=== PATIENT | female | born 1965 | race Hispanic/Latino ===

== ENCOUNTER 2023-04-13 11:02 | Emergency (ER) | payer OTHER ==
[~2023-04-13] VITALS: Ht 170.2 cm; Wt 54.9 kg
[2023-04-13 11:36] VITALS: BP 115/74; PULSE 74; RESP 16; O2SAT 100
[2023-04-13 12:08] LABS: BASOPHILS # (AUTO) 0.01 K/uL (0.00-0.20); BASOPHILS % (AUTO) 0.2 % (0.0-5.0); EOSINOPHILS # (AUTO) 0.11 K/uL (0.00-0.70); EOSINOPHILS % (AUTO) 1.8 % (0.0-8.0); HEMATOCRIT 42.9 % (36-48); IMMATURE GRANULOCYTE ABSOLUTE 0.01 K/uL (0-1); LYMPHOCYTES # (AUTO) 1.6 K/uL (1.0-4.8); LYMPHOCYTES % (AUTO) 26.5 % (21.0-51.0); MEAN CORPUSCULAR HEMOGLOBIN 29.8 pg (27.0-33.0); MEAN CORPUSCULAR HGB CONC 32.9 g/dL (32.0-36.0); MEAN CORPUSCULAR VOLUME 90.7 fL (79-99); MONOCYTES # (AUTO) 0.4 K/uL (0.1-1.0); MONOCYTES % (AUTO) 6.4 % (3.0-13.0); NEUTROPHILS % (AUTO) 64.9 % (40.0-77.0); PLATELET COUNT (AUTO) 229 K/uL (130-400); RED BLOOD CELL COUNT(AUTO) 4.73 MIL/uL (4.00-5.50); RED CELL DISTRIBUTION WIDTH 13.3 % (11.0-15.5); WHITE BLOOD COUNT (AUTO) 6.1 K/uL (4.8-10.8)
[2023-04-13 12:12] LABS: APPEARANCE,URINE CLEAR (CLEAR); BILIRUBIN,URINE NEGATIVE (NEGATIVE); COLOR,URINE YELLOW (YELLOW); GLUCOSE, URINE (UA) NEGATIVE (NEGATIVE); KETONES,URINE 10 mg/dL (NEGATIVE); LEUKOCYTE ESTERASE ,URINE NEGATIVE Leu/uL (NEGATIVE); NITRATE,URINE NEGATIVE (NEGATIVE); OCCULT BLOOD,URINE NEGATIVE (NEGATIVE); PROTEIN,URINE NEGATIVE (NEGATIVE); UROBILINOGEN,URINE 0.2 mg/dL (0.2-1.0)
[2023-04-13 12:19] LABS: ADD UA MICROSCOPIC YES
[2023-04-13 12:23] LABS: MUCUS,URINE RARE LPF (None Seen); RBC,URINE 0-1 /HPF (0-1); SQUAMOUS EPITHELIAL CELL,UR RARE /HPF (0-2); WBC,URINE 0-1 /HPF (0-1)
[2023-04-13 12:24] LABS: CREATININE 0.7 mg/dL (0.5-1.5); POTASSIUM 3.8 mmol/L (3.5-5.1)
[2023-04-13 12:29] LABS: ALBUMIN 4.3 g/dL (3.5-5.0); BILIRUBIN,TOTAL 0.6 mg/dL (0.2-1.0)
[2023-04-13] MEDS ORDERED: LIDOCAINE HCL 2% VISCOUS 15 ML UDCUP PO ONE (13:00)
[2023-04-13] MEDS ORDERED: MAG/ALUM/SIMETH 30 ML UDCUP PO ONE (13:00)
[2023-04-13] MEDS ORDERED: DICYCLOMINE HCL 10 MG/5 ML ML PO ONE (13:00)
[2023-04-13] MEDS ORDERED: FAMOTIDINE 20MG VIAL IV ONE (13:00)
[2023-04-13] MEDS ORDERED: KETOROLAC 30MG VIAL (30MG/ML) IVP ONE (14:30)
[2023-04-13] MEDS ORDERED: PANT40TA54 PO (14:38)
== END 2023-04-13 15:15 | disposition home or self-care (01) ==
LOC: EDH 11:02
DX: K29.00 Acute gastritis without bleeding (principal); E03.9 Hypothyroidism, unspecified; E78.00 Pure hypercholesterolemia, unspecified; M19.90 Unspecified osteoarthritis, unspecified site; Z90.710 Acquired absence of both cervix and uterus
CPT/HCPCS: 99285; 96374; 71045; 96375; 84484; 80053; 83690; 85025; 81001; 36415; 93005; J3490; J1885

== ENCOUNTER → 2023-05-04 | Outpatient (CLI) | payer OTHER ==
[~2023-05-04] MED LIST: PANT40TA54 PO
[2023-05-04 16:09] LABS: BASOPHILS # (AUTO) 0.03 K/uL (0.00-0.20); BASOPHILS % (AUTO) 0.6 % (0.0-5.0); EOSINOPHILS % (AUTO) 1.9 % (0.0-8.0); HEMATOCRIT 41.9 % (36-48); IMMATURE GRANULOCYTE ABSOLUTE 0.01 K/uL (0-1); LYMPHOCYTES # (AUTO) 1.7 K/uL (1.0-4.8); LYMPHOCYTES % (AUTO) 32.4 % (21.0-51.0); MEAN CORPUSCULAR HEMOGLOBIN 29.3 pg (27.0-33.0); MEAN CORPUSCULAR HGB CONC 31.5 g/dL (32.0-36.0); MEAN CORPUSCULAR VOLUME 92.9 fL (79-99); MONOCYTES # (AUTO) 0.5 K/uL (0.1-1.0); MONOCYTES % (AUTO) 9.5 % (3.0-13.0); NEUTROPHILS % (AUTO) 55.4 % (40.0-77.0); PLATELET COUNT (AUTO) 194 K/uL (130-400); RED BLOOD CELL COUNT(AUTO) 4.51 MIL/uL (4.00-5.50); RED CELL DISTRIBUTION WIDTH 13.2 % (11.0-15.5); WHITE BLOOD COUNT (AUTO) 5.4 K/uL (4.8-10.8)
[2023-05-04 16:44] LABS: BILIRUBIN,TOTAL 0.4 mg/dL (0.2-1.0); CREATININE 0.7 mg/dL (0.5-1.5); TOTAL PROTEIN, SERUM 7.2 g/dL (6.0-8.3)
== END | disposition home or self-care (01) ==
LOC: LAB 15:43
PROVIDERS: ATTEND Internal Medicine Gastroenterology
DX: C16.9 Malignant neoplasm of stomach, unspecified (principal)
CPT/HCPCS: 36415; 80053; 85025; 86304

== ENCOUNTER → 2023-05-06 | Outpatient (CLI) | payer OTHER ==
[~2023-05-06] MED LIST changes: +IOHEXOL-350 75 ML VIAL IV ONE
== END | disposition home or self-care (01) ==
LOC: RAH 08:56
PROVIDERS: ATTEND Internal Medicine Gastroenterology
DX: C16.9 Malignant neoplasm of stomach, unspecified (principal)
CPT/HCPCS: 71270; 74178; Q9967

== ENCOUNTER → 2023-07-08 | Outpatient (CLI) | payer OTHER ==
[~2023-07-08] MED LIST changes: -IOHEXOL-350 75 ML VIAL IV ONE
== END | disposition home or self-care (01) ==
LOC: CANPRECLI → RAH 15:33
PROVIDERS: ATTEND Family Medicine
DX: E04.1 Nontoxic single thyroid nodule (principal)
CPT/HCPCS: 76536

== ENCOUNTER → 2024-02-29 | Outpatient (CLI) | payer OTHER ==
[~2024-02-29] MED LIST changes: +IOHEXOL-350 75 ML VIAL IV ONE
--- NOTE | 2024-02-29 15:57 | HMCIMG ---
CT CHEST/ABD/PELV W/WO CONTRAS HISTORY: 05/06/2023 COMPARISON: None TECHNIQUE: Multiple sequential axial images of the chest were obtained from the thoracic inlet through upper abdomen. Patient was given 75 cc of Omnipaque through intravenous route. FINDINGS: COPD changes are seen. A small hiatal hernia is seen. There is no evidence of pulmonary nodule or parenchymal disease. No pleural effusion or pericardial effusion is seen. There is no evidence of pneumothorax. There are normal size mediastinal and hilar lymph nodes. The heart is not enlarged. Degenerative changes of the thoracolumbar spine are present. There is no evidence of adrenal nodule. IMPRESSION: 1. No evidence of pulmonary nodule or effusion is seen. COPD. CT CHEST/ABD/PELV W/WO CONTRAS HISTORY: Gastric adenocarcinoma COMPARISON: None TECHNIQUE: Multiple sequential axial images of the abdomen and pelvis were obtained from the dome of the diaphragm through symphysis pubis. Patient was given 75 cc of Omnipaque through intravenous route. Oral contrast was not given. FINDINGS: Postcholecystectomy changes are seen. The study is limited due to minimal mesenteric fat in this patient. Liver measures 16 cm. Minimal small bowel dilatation is seen. The liver, spleen, adrenal glands and pancreas are unremarkable. There is no evidence of hydronephrosis bilaterally. No evidence of renal stone is seen. Fecal material is seen in the colon. There are normal size retroperitoneal and mesenteric lymph nodes. No ascites is seen. No definite CT evidence of acute appendicitis is seen. Clinical correlation is recommended. Pelvic sidewalls are symmetric bilaterally. Bladder is well distended without wall thickening. IMPRESSION: 1. Limited study. Fecal material is seen in the colon. CT was performed with one or more following dose reduction techniques: automated exposure control, adjustment of the mA and kv according to patient's size, or use of a iterative reconstruction technique.
== END | disposition home or self-care (01) ==
LOC: RAH 13:20
PROVIDERS: ATTEND Family Medicine
DX: C16.9 Malignant neoplasm of stomach, unspecified (principal); J44.9 Chronic obstructive pulmonary disease, unspecified; K44.9 Diaphragmatic hernia without obstruction or gangrene; M47.815 Spondylosis without myelopathy or radiculopathy, thoracolumbar region
CPT/HCPCS: 71270; 74178; Q9967

== ENCOUNTER → 2024-03-18 | Outpatient (CLI) | payer OTHER ==
[~2024-03-18] MED LIST changes: -IOHEXOL-350 75 ML VIAL IV ONE
== END | disposition home or self-care (01) ==
LOC: SHCH 08:18
PROVIDERS: ATTEND Student in an Organized Health Care Education/Training Program
DX: Z51.11 Encounter for antineoplastic chemotherapy (principal); R53.83 Other fatigue
CPT/HCPCS: 93306

== ENCOUNTER → 2024-11-08 | Outpatient (CLI) | payer OTHER ==
--- NOTE | 2024-11-09 05:02 | HMCIMG ---
EXAMINATION: ULTRASOUND OF THE THYROID. CLINICAL HISTORY: Non-toxic single thyroid nodule. COMPARISON: Ultrasound of the thyroid dated 07/08/2023. TECHNIQUE: Transverse and longitudinal images were obtained through both lobes and the isthmus of the thyroid. FINDINGS: The thyroid gland is normal in caliber with homogenous tissue echotexture. The right thyroid lobe measures 3.9 x 0.7 x 1.1 cm and the left thyroid lobe measures 2.5 x 0.9 x 1.0 cm in the craniocaudal, AP, and transverse dimensions respectively. The isthmus measures 0.16 cm in AP dimension. Right lobe: There is a hyperechoic solid nodule that measures 0.8 x 0.5 x 0.6 cm at the upper pole (TR3). Left lobe: There are no focal lesions. No significantly enlarged lymph nodes. IMPRESSION: Nodule in the right lobe of the thyroid. No significant interval changes. TI-RADS follow up recommendations: TR1: no FNA required TR2: no FNA required TR3: more than or equal to 1.5 cm follow up, more than or equal to 2.5 cm FNA follow up: 1, 3 and 5 years TR4: more than or equal to 1.0 cm follow up, more than or equal to 1.5 cm FNA follow up: 1, 2, 3 and 5 years TR5: more than or equal to 0.5 cm follow up, more than or equal to 1.0 cm FNA annual follow up for up to 5 years /[place]
== END | disposition home or self-care (01) ==
LOC: RAH 14:37
PROVIDERS: ATTEND Family Medicine
DX: E04.1 Nontoxic single thyroid nodule (principal)
CPT/HCPCS: 76536

== ENCOUNTER 2024-11-20 08:56 | Emergency (ER) | payer OTHER ==
[~2024-11-20] VITALS: Ht 170.2 cm; Wt 44.0 kg
[2024-11-20 10:01] LABS: IMMATURE GRANULOCYTE ABSOLUTE 0.01 K/uL (0-1); NUCLEATED RED BLOOD CELLS 0.0 % (0.0-0.19); PLATELET COUNT (AUTO) 219 K/uL (130-400); RED BLOOD CELL COUNT(AUTO) 4.02 MIL/uL (4.00-5.50); RED CELL DISTRIBUTION WIDTH 14.4 % (11.0-15.5); WHITE BLOOD COUNT (AUTO) 5.0 K/uL (4.8-10.8)
--- NOTE | 2024-11-20 10:02 | EKG ---
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
[2024-11-20 10:13] LABS: CREATININE 0.6 mg/dL (0.5-1.0); GLOMERULAR FILTR. RATE CALC 105.0 mL/min (>90); GLUCOSE,RANDOM 83.0 mg/dL (70-105); SODIUM SERUM 141.0 mmol/L (136-145); UREA NITROGEN, BLOOD 14.0 mg/dL (7-18)
[2024-11-20 10:17] LABS: ASPARTATE AMINOTRANSFERASE 38.0 U/L (10-37); TOTAL PROTEIN, SERUM 6.6 g/dL (6.0-8.3)
[2024-11-20] MEDS: 0.9%NACL 1000ML 1,000 ML IV ONE (10:25)
[2024-11-20 10:35] LABS: APPEARANCE,URINE CLEAR (CLEAR); GLUCOSE, URINE (UA) NEGATIVE (NEGATIVE); LEUKOCYTE ESTERASE ,URINE 25 Leu/uL (NEGATIVE); NITRATE,URINE NEGATIVE (NEGATIVE); OCCULT BLOOD,URINE +- (TRACE) (NEGATIVE)
[2024-11-20 10:36] LABS: ADD UA MICROSCOPIC YES
[2024-11-20 10:38] LABS: SQUAMOUS EPITHELIAL CELL,UR RARE /HPF (0-2)
--- NOTE | 2024-11-20 11:13 | HMCIMG ---
EXAM: CT Abdomen and Pelvis Without IV contrast CLINICAL HISTORY: right sided abdominal pain TECHNIQUE: Axial computed tomography images of the abdomen and pelvis without intravenous contrast. CONTRAST: No IV contrast. COMPARISON: None provided. FINDINGS: LUNG BASES: The lung bases appear clear. No pleural effusions are seen. LIVER: Unremarkable. GALLBLADDER AND BILE DUCTS: The gallbladder appears within normal limits. No radioopaque gallstones are seen. No biliary ductal dilatation is evident. PANCREAS: Unremarkable. SPLEEN: Unremarkable. ADRENAL GLANDS: Unremarkable. KIDNEYS, URETERS, AND BLADDER: 3 mm stone in the right distal ureter with moderate right hydroureteronephrosis. Bilateral subcentimeter obstructing renal collecting system stones. No left ureteral stones. No left hydronephrosis. STOMACH AND BOWEL: No bowel obstruction or inflammation. Postsurgical changes from gastric bypass. Small hiatal hernia. APPENDIX: Normal appendix. PERITONEUM: No free fluid. No free air. LYMPH NODES: No lymphadenopathy is evident. REPRODUCTIVE: Unremarkable as visualized. VASCULATURE: No evidence of abdominal aortic aneurysm. BONES: No aggressive appearing osseous lesion. No acute osseous pathology evident. IMPRESSION: 1. 3 mm stone in the right distal ureter with moderate right hydroureteronephrosis. 2. Bilateral subcentimeter obstructing renal collecting system stones. No left ureteral stones. No left hydronephrosis. 3. No bowel obstruction or inflammation. Normal appendix. 4. Postsurgical changes from gastric bypass. Small hiatal hernia. /[place]
--- NOTE | 2024-11-20 13:22 | NUR ---
REPORT GIVEN TO ANN
[2024-11-20] MEDS ORDERED: ONDA-243 PO (15:01)
[2024-11-20] MEDS ORDERED: NAPR-1196 PO (15:01)
[2024-11-20] MEDS ORDERED: TAMS-55 PO (15:01)
--- NOTE | 2024-11-20 15:01 | ERN ---
ED Note History of Present Illness Stated Complaint: MULTIPLE COMPLAINTS Chief Complaint: Multiple Complaints Time Seen by MD: 09:12 Dictation: 59-year-old female presenting to the emergency department with right-sided flank pain nausea and abdominal pain over the past few days. Patient has a history of gastrectomy status post scale for currently not on any chemotherapy or radiation. Allergies: Coded Allergies: No Known Drug Allergies (Unverified Allergy, Unknown, 04/13/23) Home Meds Active Scripts Pantoprazole Sodium (Pantoprazole Sodium) 40 Mg Tablet.dr, 40 MG PO DAILY, #30 TAB Prov:[employer] 04/13/23 Past Medical History Past Medical History: High Cholesterol, Hypothyroid Additional Past Medical Hx: SCORIATIC ARTHRITIS, TOTAL GASTRECTOMY DUE TO STOMACH CANCER Surgical History: Hysterectomy Surgical History Other: NECK FUSION History: Not Applicable Review of System Dictation Constitutional: Negative for fever,chills, and weight loss Eyes: Negative for injury, pain,redness, and discharge ENT: Negative for injury,pain or swelling Cardiovascular: Negative for chest pain, palpitations, and edema Respiratory: Negative for shortness of breath, cough, and wheezing, Abdomen/GI: Per HPI : Negative for injury, bleeding and discharge MS/Extremity: Negative for injury and deformity Skin: Negative for rash, and discoloration Neuro: Negative for headache, weakness, numbness, tingling, and seizure Psych: Negative for suicide ideation, homicidal ideation, and hallucinations Initial Vital Sign VS Vital Signs Date Time Temp Pulse Resp B/P (MAP) Pulse Ox O2 Delivery O2 Flow Rate FiO2 11/20/24 08:57 98.1 63 18 105/68 98 Room Air 11/20/24 09:15 0 21 Physical Exam Dictation General: awake, alert, uncomfortable Head/Face: Normocephalic, atraumatic Eyes: PERRL, EOMI, vision at baseline ENT: oral cavity clear, TMs clear, no signs of infection Neck: Trachea midline, supple, no nuchal rigidity Cardiovascular: RRR, normal S1/S2, No MRGs, no JVD Respiratory: CTAB, no respiratory distress, No rales or wheezes Abdomen: Soft, non-tender, non-distended, normal bowel sounds, no guarding or rebound. Skin: Warm, dry, normal turgor, no rash MS/Extremity: Pulses equal, no cyanosis, neurovascular intact, FROM Neuro: COAx4, GCS 15, strength 5/5, CN 2-12 intact, normal cerebellar exam, normal gait, Psych: Normal behavior, mood, and affect normal Results (Laboratory/Radiology) Laboratory/Radiology Laboratory Tests Test 11/20/24 09:55 11/20/24 10:19 White Blood Count 5.0 K/uL (4.8-10.8) Red Blood Count 4.02 MIL/uL (4.00-5.50) Hemoglobin 12.0 g/dL (12.0-16.0) Hematocrit 36.6 % (36-48) Mean Corpuscular Volume 91.0 fL (79-99) Mean Corpuscular Hemoglobin 29.9 pg (27.0-33.0) Mean Corpuscular Hemoglobin Concent 32.8 g/dL (32.0-36.0) Red Cell Distribution Width 14.4 % (11.0-15.5) Platelet Count 219 K/uL (130-400) Mean Platelet Volume 9.1 fL (7.5-10.5) Immature Granulocyte % (Auto) 0.2 % (0-1) Neutrophils (%) (Auto) 67.4 % (40.0-77.0) Lymphocytes (%) (Auto) 18.7 % (21.0-51.0) L Monocytes (%) (Auto) 10.7 % (3.0-13.0) Eosinophils (%) (Auto) 2.4 % (0.0-8.0) Basophils (%) (Auto) 0.6 % (0.0-5.0) Neutrophils # (Auto) 3.4 K/uL (1.8-7.7) Lymphocytes # (Auto) 0.9 K/uL (1.0-4.8) L Monocytes # (Auto) 0.5 K/uL (0.1-1.0) Eosinophils # (Auto) 0.12 K/uL (0.00-0.70) Basophils # (Auto) 0.03 K/uL (0.00-0.20) Absolute Immature Granulocyte (auto 0.01 K/uL (0-1) Nucleated Red Blood Cells 0.0 % (0.0-0.19) Sodium Level 141 mmol/L (136-145) Potassium Level 3.8 mmol/L (3.5-5.1) Chloride Level 104 mmol/L (101-111) Carbon Dioxide Level 30 mmol/L (21-32) Blood Urea Nitrogen 14 mg/dL (7-18) Creatinine 0.6 mg/dL (0.5-1.0) Glomerular Filtration Rate Calc 105 mL/min (>90) Random Glucose 83 mg/dL (70-105) Lactic Acid Level 1.2 mmol/L (0.8-2.5) Total Calcium 8.8 mg/dL (8.5-10.1) Total Bilirubin 0.5 mg/dL (0.2-1.0) Direct Bilirubin 0.1 mg/dL (0.0-0.3) Aspartate Amino Transf (AST/SGOT) 38 U/L (10-37) H Alanine Aminotransferase (ALT/SGPT) 34 U/L (12-78) Alkaline Phosphatase 78 U/L (50-136) Troponin I High Sensitivity 6 ng/L (4-50) Total Protein 6.6 g/dL (6.0-8.3) Albumin 3.6 g/dL (3.5-5.0) Lipase 26 U/L (16-77) Urine Color YELLOW (YELLOW) Urine Appearance CLEAR (CLEAR) Urine pH 6.0 (5.0-8.0) Urine Specific [place] 1.017 (1.001-1.031) Urine Protein NEGATIVE mg/dL (NEGATIVE) Urine Glucose (UA) NEGATIVE mg/dL (NEGATIVE) Urine Ketones NEGATIVE mg/dL (NEGATIVE) Urine Occult Blood +- (TRACE) (NEGATIVE) H Urine Nitrate NEGATIVE (NEGATIVE) Urine Bilirubin NEGATIVE mg/dL (NEGATIVE) Urine Urobilinogen 0.2 mg/dL (0.2-1.0) Urine Leukocyte Esterase 25 Mayi/uL (NEGATIVE) H Urine RBC 6-10 /HPF (0-1) H Urine WBC 11-25 /HPF (0-1) H Urine Squamous Epithelial Cells RARE /HPF (0-2) Urine Bacteria RARE /HPF (None Seen) Labs Reviewed?: Yes EKG Comment: Heart rate 65 normal sinus rhythm normal intervals no STEMI ED Course ED Course Orders Procedure Category Date Status Time 12 Lead Ekg Tracing- EKG 11/20/24 Resulted Technical 09:43 Basic Metabolic Panel LAB 11/20/24 Complete 09:43 Cbc With Differential LAB 11/20/24 Complete 09:43 Hepatic Function Panel LAB 11/20/24 Complete 09:43 Lipase LAB 11/20/24 Complete 09:43 Lactic Acid LAB 11/20/24 Complete 09:43 Troponin I High LAB 11/20/24 Complete Sensitivity 09:43 Urinalysis Profile LAB 11/20/24 Complete 09:43 Ct Abd/Pel Wo Con CT 11/20/24 Resulted Renal/Appy 09:43 Ondansetron 4mg Inj PHA 11/20/24 Complete (Zofran 4mg Inj) 10:00 Morphine 4mg Syg PHA 11/20/24 Complete (Morphine 4mg Syg) 10:00 0.9%Nacl 1000ml (Ns PHA 11/20/24 Complete 1000ml) 10:00 Culture Urine MALCOLM 11/20/24 In Process 10:42 Ketorolac PHA 11/20/24 Complete Tromethamine 15mg/Ml 11:30 Hydromorphone 0.5mg PHA 11/20/24 Complete Syg (Dilaudid 0.5mg 12:00 Current Medications Medications (Trade) Dose Ordered Sig/Becka Route PRN Reason Start Time Stop Time Status Last Admin Dose Admin Hydromorphone HCl (DiLAUDid 0.5MG INJ) 0.5 mg ONCE ONCE IVP 11/20/24 12:00 11/20/24 12:03 DC 11/20/24 12:31 Ketorolac Tromethamine (toRADol) 15 mg ONCE ONCE IV 11/20/24 11:30 11/20/24 11:31 DC 11/20/24 12:31 Morphine Sulfate (morPHINE 4MG SYG) 4 mg ONCE ONCE IVP 11/20/24 10:00 11/20/24 10:01 DC 11/20/24 10:26 Ondansetron HCl (zoFRAN 4MG INJ) 4 mg ONCE ONCE IVP 11/20/24 10:00 11/20/24 10:01 DC 11/20/24 10:25 Sodium Chloride 1,000 ml @ 0 mls/hr ONCE ONCE IV 11/20/24 10:00 11/20/24 10:01 DC 11/20/24 10:25 Vital Signs Date Time Temp Pulse Resp B/P (MAP) Pulse Ox O2 Delivery O2 Flow Rate FiO2 11/20/24 14:14 98.1 60 18 109/68 98 Room Air* 0 11/20/24 12:25 98.1 60 18 102/65 100 Room Air* 0 11/20/24 11:15 98.1 62 18 111/65 99 Room Air* 0 11/20/24 10:15 98.1 60 18 102/64 99 Room Air* 0 11/20/24 09:15 98.1 63 18 105/65 98 Room Air* 0 11/20/24 08:57 98.1 63 18 105/68 98 Room Air Medical Decision Making MDM MDM: Differential diagnosis: Rationale: Tests considered and ordered secondary to shared decision making include: Previous outside records reviewed: Old ER visits. Risk of complication and/or morbidity or mortality of patient management: None Medications-Per medication reconciliation Need for hospitalization: Patient does not meet criteria for hospitalization. Need for emergency major/minor surgery: No There are no social concerns with this patient. Prescription drug management Prescriptions will include symptomatic care Patient's prior external medical records from other ER visits were reviewed by me as indicated. Prior testing and results from previous visits were reviewed. Prior tests were taken into account with medical decision making and resource utilization, independent historian/historians were used to obtain complete medical history. I independently interpreted the test that were performed, results were reviewed by me and considered findings on radiology if ordered. Medical management and examination interpretation discussions were had by me with other qualified healthcare professionals as indicated for the patient's care. 59-year-old female with kidney stone right side, no complications symptoms improved wants to go home offered admission prescriptions given advised to return if worse. DX & DISP Disposition: Discharge Departure Impression: Primary Impression: Renal colic on right side Condition: Stable Scripts Tamsulosin HCl (Flomax) 0.4 Mg Cap.er.24h 1 CAP PO DAILY for 10 Days, #10 CAP 0 Refills Prov: CORRINE GOYAL MD 11/20/24 Naproxen (Naproxen) 250 Mg Tablet 250 MG PO BID for 5 Days, #10 TAB Prov: CORRINE GOYAL MD 11/20/24 Ondansetron (Ondansetron Odt) 4 Mg Tab.rapdis 4 MG PO BID for vomiting for 5 Days, #10 TAB Prov: CORRINE GOYAL MD 11/20/24 Referrals: LIU STEPHENS MD (PCP) CORRINE GOYAL MD Nov 20, 2024 15:01
[2024-11-20 15:16] VITALS: BP 109/61; PULSE 62; RESP 18; TEMP 98.1; O2SAT 98
== END 2024-11-20 15:26 | disposition home or self-care (01) ==
LOC: EDH 08:56
DX: N13.2 Hydronephrosis with renal and ureteral calculous obstruction (principal); E78.00 Pure hypercholesterolemia, unspecified; E03.9 Hypothyroidism, unspecified; Z79.899 Other long term (current) drug therapy; Z85.028 Personal history of other malignant neoplasm of stomach; Z90.710 Acquired absence of both cervix and uterus; Z98.84 Bariatric surgery status
CPT/HCPCS: 99285; 74176; 96374; 96375; 96361; 80076; 84484; 80048; 83690; 85025; 87086 ×2; 87186; 83605; 81001; 36415; 93005; J1885; J7030; J2405; J2270; J1171

== ENCOUNTER → 2024-12-13 | Outpatient (CLI) | payer OTHER ==
[~2024-12-13] MED LIST changes: +NAPR-1196 PO; +ONDA-243 PO; +TAMS-55 PO
--- NOTE | 2024-12-13 18:44 | HMCIMG ---
EXAM: MR RT SHOULDER WITHOUT CONTRAST CLINICAL HISTORY: 59-year-old female with impingement syndrome of the right shoulder. TECHNIQUE: Multiplanar multisequence magnetic resonance images were obtained without contrast. CONTRAST: None COMPARISON: None FINDINGS: JOINTS: Unremarkable. No dislocation or significant effusion. BONE: No acute fracture or focal osseous lesion. SOFT TISSUES: Moderate tendinopathy of the supraspinatus, infraspinatus, and subscapularis. Partial-thickness tear and bursal surface fraying of the supraspinatus and infraspinatus, with loss of fibers 30 to 40%. IMPRESSION: 1. Moderate tendinopathy of the supraspinatus, infraspinatus, and subscapularis. 2. Partial-thickness tear and bursal surface fraying of the supraspinatus and infraspinatus, with loss of fibers 30 to 40%. /[place]
--- NOTE | 2024-12-14 07:19 | HMCIMG ---
EXAMINATION: ULTRASOUND OF THE RETROPERITONEUM. CLINICAL HISTORY: Renal calculus. COMPARISON: CT abdomen and pelvis without contrast dated 11/20/2024. TECHNIQUE: Real-time grayscale ultrasound images of the kidneys. FINDINGS: The kidneys are normal in caliber, the right kidney measures 11.3 x 5.3 x 5.4 cm and the left kidney measures 10.3 x 4.8 x 5.0 cm in its craniocaudal, AP, and transverse dimensions respectively. There is normal renal cortical thickness, and cortical echogenicity. There is no left hydronephrosis. There is a calculus that measures 0.5 x 0.2 cm at the right renal mid pole. There are calculi that measure 0.4 x 0.2 cm in the mid pole and 0.8 x 0.2 cm in the lower pole of the left kidney. There is moderate right hydronephrosis. There is dilated right upper ureter that measures 1.7 cm. The urinary bladder is partially distended with normal wall thickness (0.27 cm). There are no calculi in the urinary bladder. IMPRESSION: Bilateral renal calculi. Moderate right hydronephrosis and proximal hydroureter. Recommend CT urography. /[place]
== END | disposition home or self-care (01) ==
LOC: RAH 12:48
PROVIDERS: ATTEND Student in an Organized Health Care Education/Training Program
DX: N13.2 Hydronephrosis with renal and ureteral calculous obstruction (principal); M75.111 Incomplete rotator cuff tear or rupture of right shoulder, not specified as traumatic; M67.911 Unspecified disorder of synovium and tendon, right shoulder; M75.41 Impingement syndrome of right shoulder
CPT/HCPCS: 73221; 76770